=== PATIENT | male | born 1965 | race Caucasian/White ===

== ENCOUNTER 2022-11-03 07:38 | Emergency (ER) | payer BC ==
[~2022-11-03] VITALS: Ht 182.9 cm; Wt 92.4 kg
[2022-11-03] MEDS ORDERED: cephalexin 250mg capsule PO ONE (09:25)
[2022-11-03] MEDS ORDERED: sulfamethoxazole/trimethoprim DS (800/160mg) tablet PO ONE (09:25)
[2022-11-03] MEDS ORDERED: SULF1TAB45 PO (09:55)
[2022-11-03] MEDS ORDERED: CEPH-585 PO (09:55)
[2022-11-03 10:13] VITALS: BP 133/98
== END 2022-11-03 10:15 | disposition home or self-care (01) ==
LOC: ER 07:39
DX: L03.115 Cellulitis of right lower limb (principal); Z79.899 Other long term (current) drug therapy
CPT/HCPCS: 99283